=== PATIENT | female | born 1975 | race Caucasian/White ===

== ENCOUNTER 2017-09-05 06:06 | Emergency (ER) | payer SELFPAY ==
[~2017-09-05] VITALS: Ht 160 cm; Wt 107.7 kg
[~2017-09-05 06:06] MED LIST: (None)3.5 GM OP; AMOXICILLIN500 MG PO; ANTIVERT OR; BACTRIM DS1 TAB PO; CEPHALEXIN500 MG PO; GENTAMICIN15 ML/BTL OP; HYDROXYZ HCL25 MG PO; NAPROSYN500 MG PO; REGLAN10 MG OR; ULTRAM50 M1 PO; ULTRAM50 MG OR; ULTRAM50 MG PO; ZOFRAN4 MG/TAB PO
[2017-09-05] MEDS ORDERED: MEDROL DOSEPAK4 MG PO (06:27)
[2017-09-05] MEDS ORDERED: FLEXERIL5 M1 PO (06:27)
[2017-09-05 07:30] LABS: HEMATOCRIT 37.3 % (37.0-47.0); IMMATURE GRANULOCYTES 0.4 % (0.0-1.0); MEAN CELL VOLUME 88.2 fL CALC (80.0-100.0); MEAN CORPUSCULAR HGB 28.4 pG CALC (26.0-32.0); MEAN CORPUSCULAR HGB CONC 32.2 g/L CALC (32.0-36.0); NEUT# 5.5 thou/uL (2.00-7.15); RED BLOOD COUNT 4.23 mill/uL (4.20-5.60)
[2017-09-05] MEDS ORDERED: HYDROCO/APAP1 TA9 PO (08:57)
[2017-09-05] MEDS ORDERED: ONDANSETRON4 MG PO (08:57)
[2017-09-05 09:04] VITALS: BP 119/69
== END 2017-09-05 09:15 | disposition home or self-care (01) | DRG 556 ==
LOC: ED 06:06
PROVIDERS: Family Medicine
PROC: 2W3NX1Z Immobilization of Right Upper Leg using Splint (ICD-10-PCS; principal; 2017-09-05)
DX: M25.561 Pain in right knee (principal); M25.461 Effusion, right knee
CPT/HCPCS: L1830

== ENCOUNTER 2018-06-14 15:51 | Emergency (ER) | payer SELFPAY ==
[~2018-06-14] VITALS: Ht 160 cm; Wt 100.0 kg
[~2018-06-14 15:51] MED LIST changes: +FLEXERIL5 M1 PO; +HYDROCO/APAP1 TA9 PO; +MEDROL DOSEPAK4 MG PO; +ONDANSETRON4 MG PO
[2018-06-14] MEDS ORDERED: HYDROCO/APAP1 TA9 PO (15:57)
[2018-06-14] MEDS ORDERED: TAM75CAP PO (17:11)
[2018-06-14 17:12] VITALS: BP 135/77
== END 2018-06-14 17:12 | disposition home or self-care (01) | DRG 195 ==
LOC: ED 15:51
DX: J10.1 Influenza due to other identified influenza virus with other respiratory manifestations (principal); R05 Cough; R11.2 Nausea with vomiting, unspecified; R19.7 Diarrhea, unspecified; R61 Generalized hyperhidrosis

== ENCOUNTER 2018-10-24 17:53 | Emergency (ER) | payer SELFPAY ==
[~2018-10-24] VITALS: Ht 160 cm; Wt 83.6 kg
[~2018-10-24 17:53] MED LIST changes: +TAM75CAP PO
[2018-10-24] MEDS ORDERED: FLEXERIL5 M1 PO (19:23)
[2018-10-24 19:30] VITALS: BP 139/74
== END 2018-10-24 19:30 | disposition home or self-care (01) | DRG 563 ==
LOC: ED 17:53
DX: S46.811A Strain of other muscles, fascia and tendons at shoulder and upper arm level, right arm, initial encounter (principal); M06.9 Rheumatoid arthritis, unspecified; X58.XXXA Exposure to other specified factors, initial encounter

== ENCOUNTER 2019-08-08 | Emergency (ER) | payer SELFPAY ==
[2019-08-08] MEDS ORDERED: PAXIL30 MG PO (17:29)
[2019-08-08] MEDS ORDERED: XANAX1 MG PO (17:30)
[2019-08-08] MEDS ORDERED: AMOXICILLIN875 MG PO (19:27)
== END 2019-08-08 19:35 | disposition home or self-care (01) | DRG 153 ==
DX: J06.9 Acute upper respiratory infection, unspecified (principal); B37.0 Candidal stomatitis

== ENCOUNTER 2021-05-30 08:30 | Emergency (ER) | payer SELFPAY ==
[~2021-05-30] VITALS: Ht 160 cm; Wt 108.0 kg
[~2021-05-30 08:30] MED LIST changes: +AMOXICILLIN875 MG PO; +PAXIL30 MG PO; +XANAX1 MG PO
[2021-05-30 09:19] VITALS: BP 118/68
[2021-05-30] MEDS ORDERED: ZPAK PO (09:20)
== END 2021-05-30 09:26 | disposition home or self-care (01) | DRG 153 ==
LOC: ED 08:30
DX: J06.9 Acute upper respiratory infection, unspecified (principal); E66.9 Obesity, unspecified; M06.9 Rheumatoid arthritis, unspecified; F32.A Depression, unspecified; F41.9 Anxiety disorder, unspecified; Z86.73 Personal history of transient ischemic attack (TIA), and cerebral infarction without residual deficits; Z20.822 Contact with and (suspected) exposure to COVID-19

== ENCOUNTER 2021-12-31 11:44 | Emergency (ER) | payer SELFPAY ==
[~2021-12-31] VITALS: Ht 160 cm; Wt 100.0 kg
[~2021-12-31 11:44] MED LIST changes: +ZPAK PO
[2021-12-31 11:56] VITALS: BP 97/61
[2021-12-31 12:00] VITALS: BP 100/68
[2021-12-31 12:16] VITALS: BP 92/57
[2021-12-31 12:31] VITALS: BP 100/43
[2021-12-31 12:45] VITALS: BP 95/53
[2021-12-31 12:57] VITALS: BP 95/53
== END 2021-12-31 13:00 | disposition left against medical advice (07) | DRG 833 ==
LOC: ED 11:44
DX: O9A.219 Injury, poisoning and certain other consequences of external causes complicating pregnancy, unspecified trimester (principal); S60.562A Insect bite (nonvenomous) of left hand, initial encounter; O99.891 Other specified diseases and conditions complicating pregnancy; M06.9 Rheumatoid arthritis, unspecified; Z86.73 Personal history of transient ischemic attack (TIA), and cerebral infarction without residual deficits; F32.A Depression, unspecified; F41.9 Anxiety disorder, unspecified; W57.XXXA Bitten or stung by nonvenomous insect and other nonvenomous arthropods, initial encounter; Y92.007 Garden or yard of unspecified non-institutional (private) residence as the place of occurrence of the external cause; Z3A.00 Weeks of gestation of pregnancy not specified; Z91.19 Patient's noncompliance with other medical treatment and regimen; O99.340 Other mental disorders complicating pregnancy, unspecified trimester

== ENCOUNTER 2022-03-18 11:29 | Emergency (ER) | payer SELFPAY ==
[~2022-03-18] VITALS: Ht 160 cm; Wt 95.5 kg
[2022-03-18] VITALS (18 sets, daily range): BP systolic 79–119; BP diastolic 39–86
[2022-03-18 11:53] LABS: HEMATOCRIT 38.3 % (37.0-47.0); HEMOGLOBIN 13.1 g/dl (12.0-16.0); IMMATURE GRANULOCYTES 0.1 % (0.0-5.0); MEAN CORPUSCULAR HGB 31.1 pG CALC (26.0-32.0); MEAN CORPUSCULAR HGB CONC 34.2 g/dL CAL (32.0-36.0); NEUT# 6.42 thou/uL (2.00-7.15); RED BLOOD COUNT 4.21 mill/uL (4.20-5.60); RED CELL DISTRI WIDTH 12.1 % (11.5-15.5)
[2022-03-18 12:05] LABS: ALBUMIN 4.3 g/dL (3.2-5.0); ALKALINE PHOSPHATASE 78 u/l (38-126); ANION GAP 12 (6-22 (CALC)); BILIRUBIN, TOTAL 0.4 mg/dL (0.0-1.4); BUN 16 mg/dL (7-17); BUN/CREATININE RATIO 13 (12-20 (CALC)); CARBON DIOXIDE 26 mmol/l (22-30); CHLORIDE 104 mmol/l (95-108); CREATININE 1.3 mg/dL (0.5-1.0); GFR FOR AFR.AMER. 54 ML/MIN (>=60 (CALC)); GFR OTHER RACES 44 ML/MIN (>=60 (CALC)); POTASSIUM 3.9 mmol/l (3.5-5.1); SGOT/AST 24 u/l (14-36); SODIUM 138 mmol/l (137-146); TOTAL PROTEIN 8.4 g/dL (6.3-8.2)
== END 2022-03-18 15:00 | disposition home or self-care (01) | DRG 313 ==
LOC: ED 11:29
PROVIDERS: Family Medicine
DX: R07.9 Chest pain, unspecified (principal); R51.9 Headache, unspecified; F32.A Depression, unspecified; F41.0 Panic disorder [episodic paroxysmal anxiety]; M06.9 Rheumatoid arthritis, unspecified; Z86.73 Personal history of transient ischemic attack (TIA), and cerebral infarction without residual deficits

== ENCOUNTER 2022-08-15 14:04 | Emergency (ER) | payer SELFPAY ==
[~2022-08-15] VITALS: Ht 160 cm; Wt 97.9 kg
[2022-08-15] MEDS ORDERED: ZPAK PO (15:41)
[2022-08-15 16:14] VITALS: BP 114/56
== END 2022-08-15 16:17 | disposition home or self-care (01) | DRG 153 ==
LOC: ED 14:04
DX: J06.9 Acute upper respiratory infection, unspecified (principal); Z20.822 Contact with and (suspected) exposure to COVID-19

== ENCOUNTER 2022-10-15 10:22 | Emergency (ER) | payer SELFPAY ==
[~2022-10-15] VITALS: Ht 160 cm; Wt 76.0 kg
[2022-10-15 11:12] VITALS: BP 94/50
[2022-10-15 11:31] VITALS: BP 94/55
[2022-10-15 12:01] VITALS: BP 87/50
[2022-10-15] MEDS ORDERED: ZPAK PO (12:20)
[2022-10-15] MEDS ORDERED: ZYRTEC10 MG PO (12:20)
[2022-10-15] MEDS ORDERED: MEDDOSEPAK PO (12:20)
[2022-10-15 12:23] VITALS: BP 87/50
== END 2022-10-15 12:34 | disposition home or self-care (01) | DRG 153 ==
LOC: ED 10:22
DX: J02.9 Acute pharyngitis, unspecified (principal); M06.9 Rheumatoid arthritis, unspecified; F32.A Depression, unspecified; F41.9 Anxiety disorder, unspecified; Z86.73 Personal history of transient ischemic attack (TIA), and cerebral infarction without residual deficits; Z20.822 Contact with and (suspected) exposure to COVID-19